=== PATIENT | female | born 1995 | race Caucasian/White ===

== ENCOUNTER 2017-12-31 21:09 | Emergency (ER) | payer OTHER ==
[2017-12-31 21:10] VITALS: BMI 24.7
[2017-12-31 21:25] VITALS: BP 125/85; PULSE 72; RESP 22; TEMP 98.7; O2SAT 98
[2017-12-31] MEDS ORDERED: Silver Sulfadiazine 1% Cream (20 gm) TOP STA (21:50)
[2017-12-31] MEDS ORDERED: Tdap Vaccine 0.5 ml Vial (10-64 yrs) IM ONE (21:50)
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
[2017-12-31] MEDS ORDERED: Silver Sulfadiazine 1% Cream (20 gm) ONE (21:57)
[2017-12-31] MEDS ORDERED: Tetanus/Diphtheria Toxoids 0.5 ml Syringe IM ONE (21:58)
== END 2017-12-31 22:18 | disposition home or self-care (01) ==
LOC: C.ER 21:09
DX: T25.222A Burn of second degree of left foot, initial encounter (principal); X08.8XXA Exposure to other specified smoke, fire and flames, initial encounter; Z23 Encounter for immunization